=== PATIENT | male | born 1960 | race African-American/Black ===

== ENCOUNTER 2017-11-11 23:56 | Observation (INO) | payer BC ==
[~2017-11-11] VITALS: Ht 182.9 cm; Wt 95.8 kg
[2017-11-12 00:29] LABS: HEMATOCRIT 41.9 % (38.0-50.0); HEMOGLOBIN 14.6 G/DL (12.5-16.6); MCH 32.7 PG (29.0-34.0); MCHC 34.8 G/DL (30.0-36.0); MCV 93.7 FL (86-99); PLATELET COUNT 209 K/uL (156-360); RBC DIS.WIDTH-CV 12.5 % (11.8-14.6); RBC DIS.WIDTH-SD 43.1 % (39-53); RED BLOOD COUNT 4.47 M/uL (4.00-5.50); WHITE BLOOD COUNT 8.3 K/uL (4.1-10.2)
[2017-11-12 00:39] LABS: CHLORIDE 108 mEq/L (99-109); POTASSIUM 3.6 mEq/L (3.7-5.4); SODIUM 142 mEq/L (136-147)
[2017-11-12 00:40] LABS: GLUCOSE 118 mg/dL (70-99)
[2017-11-12 00:44] LABS: CREATININE 1.1 mg/dL (0.6-1.3); GFR ESTIMATE (CALCULATED) > 59 mL/min/ (58.99-99999)
[2017-11-12 00:45] LABS: UREA NITROGEN (BUN) 17 mg/dL (9-23)
[2017-11-12 00:54] LABS: TROP-I INTERPRETATION NEGATIVE; TROPONIN-I < 0.01 ng/mL (0.0-0.30)
[2017-11-12] MEDS ORDERED: ISORDIL,SORBITR40 M3 PO ×2 (01:37→15:57)
[2017-11-12] MEDS ORDERED: ASPIR 8181 M1 PO (01:38)
[2017-11-12] MEDS ORDERED: ZESTORETIC 20-1 EAC1 PO ×2 (01:38→15:57)
[2017-11-12] MEDS ORDERED: PLAVIX75 MG PO (01:38)
[2017-11-12] MEDS ORDERED: CRESTOR40 MG PO (01:40)
[2017-11-12] MEDS ORDERED: LOPRESSOR50 MG PO ×2 (01:42→15:57)
[2017-11-12] MEDS ORDERED: MAGNESIUM250 MG PO (01:43)
[2017-11-12] MEDS ORDERED: NIACINAMIDE500 MG PO (01:44)
[2017-11-12] MEDS ORDERED: MULTIVITAMIN1 EAC2 PO (01:45)
[2017-11-12] MEDS ORDERED: TUMERIC PO (01:46)
[2017-11-12 02:20] LABS: APPEARANCE CLOUDY ((CLEAR)); BILIRUBIN NEGATIVE; BLOOD NEGATIVE; COLOR YELLOW ((YELLOW)); GLUCOSE (STRIP) 50; KETONES NEGATIVE; LEUKOCYTES NEGATIVE; NITRITE NEGATIVE; PROTEIN (STRIP) NEGATIVE; SPECIFIC GRAVITY 1.014 (1.000-1.030); UROBILINOGEN 0.2 MG/DL (0.2-1.0)
[2017-11-12 02:38] LABS: BACTERIA NONE SEEN /HPF; EPITHELIAL CELLS RARE /HPF; MUCUS TRACE /LPF; UCUL ADDED? NO; WHITE BLOOD CELLS 0-5 /HPF (0-5)
[2017-11-12 05:54] LABS: ALBUMIN 4.1 g/dL (3.2-4.8)
[2017-11-12 05:59] LABS: TOTAL BILIRUBIN 0.3 mg/dL (0.0-1.0)
[2017-11-12 06:00] LABS: ALKALINE PHOSPHATASE 71 IU/L (3-129)
[2017-11-12 06:02] LABS: AST (GOT) 24 IU/L (2-34); DIRECT BILIRUBIN 0.1 mg/dL (0.0-0.3)
[2017-11-12 06:03] LABS: ALT (GPT) 22 IU/L (3-49)
[2017-11-12 06:04] LABS: LIPASE 36 U/L (1.0-51.0)
[2017-11-12 06:29] VITALS: BP 150/90; BP 158/101
[2017-11-12 07:43] VITALS: BP 152/88
[2017-11-12 11:30] VITALS: BP 152/83
[2017-11-12 15:23] VITALS: BP 150/82
[2017-11-12] MEDS ORDERED: FINASTERIDE5 MG PO (15:57)
[2017-11-12] MEDS ORDERED: TRAMADOL HCL50 MG PO (16:07)
[2017-11-12 16:14] VITALS: BP 147/81
== END 2017-11-12 17:05 | disposition home or self-care (01) ==
LOC: EME → EDBD 23:56 → EME 23:56 → EDOF 11-12 02:47 → 5WEST 11-12 02:47 → EDOF 11-12 02:47 → ENRESERV 11-12 02:49 → 5WEST 11-12 06:02
PROVIDERS: Emergency Medicine
DX: I16.0 Hypertensive urgency (principal); I10 Essential (primary) hypertension; R33.9 Retention of urine, unspecified; M54.5 Low back pain; N32.3 Diverticulum of bladder; Z91.14 Patient's other noncompliance with medication regimen; Z91.19 Patient's noncompliance with other medical treatment and regimen; G47.33 Obstructive sleep apnea (adult) (pediatric); Z86.73 Personal history of transient ischemic attack (TIA), and cerebral infarction without residual deficits; I25.10 Atherosclerotic heart disease of native coronary artery without angina pectoris; I25.2 Old myocardial infarction; F17.210 Nicotine dependence, cigarettes, uncomplicated; Z79.82 Long term (current) use of aspirin; Z79.02 Long term (current) use of antithrombotics/antiplatelets
CPT/HCPCS: 71046; 71275; 72131; 74174; 80048; 80076; 81003; 83690; 84484; 85027; 93005; 99281; 99285; G0378; G8978 GP CH; G8979 GP CH; G8980 GP CH; G8987 GO CH; G8989 GO CH; J2060